=== PATIENT | female | born 1940 | race Caucasian/White ===

== ENCOUNTER → 2021-05-02 | Outpatient (CLI) | payer OTHER, SELFPAY ==
--- NOTE | 2021-05-02 08:10 | ASPS_PTH ---
PATIENT: ROBI GROSS LOC: [facility] #:[id number] AGE/SX: 80/F ROOM: RE05/02/[address]: Dr. David Kwong MD : 1940 BED: DIS: 05/02/2021 SPEC #: [id number] RECD: 05/02/21 14:46 STATUS: [facility] BANKS #: [id number] YANI: 05/02/21 08:[address]: David Kwong DEPT: CYTOLOGY RECD BY: Chanell Madera ENTERED: 05/03/21 08:26 SP TYPE: ASPIRATION OTHR DR: Dr. Spring Alaniz MD Tissues: Thyroid gland, NOS Procedures: Special Stain Group II Cytology Other HEADER OPERATION: Left thyroid fine needle aspiration PRE-OP DIAGNOSIS: Left thyroid nodule TISSUE SUBMITTED: Left thyroid x6 slides DIAGNOSIS CYTOLOGY Left thyroid nodule, FNA (smears): Consistent with benign colloid/follicular nodule. Adequate for evaluation. See comment. SJ:rebeka 05/04/2021 COMMENT Correlation with clinical, radiologic findings and appropriate follow up are necessary. CYTOLOGY STUDY Slides are reviewed. CYTOLOGY GROSS Received are six smears labeled with the patient's name and designated per the requisition as left thyroid. Submitted for staining. / rebeka 05/03/2021 TC:5 CPT: 56623
[2021-05-02 13:06] VITALS: BMI 29.9
== END | disposition home or self-care (01) ==
LOC: LABSPEC 15:03
PROVIDERS: PCP Internal Medicine; Visit Provider Surgery
DX: E04.1 Nontoxic single thyroid nodule (principal)
CPT/HCPCS: 88161; 88313